=== PATIENT | male | born 1985 | race African-American/Black ===

== ENCOUNTER 2016-10-25 21:54 | Emergency (ER) | payer SELFPAY ==
[~2016-10-25] VITALS: Ht 180.3 cm; Wt 85.0 kg
[2016-10-25 21:56] VITALS: BP 125/75; PULSE 87; RESP 16; TEMP 98.7
[2016-10-25] MEDS ORDERED: PRED-503 PO (22:38)
[2016-10-25] MEDS ORDERED: DICL75TA PO (22:38)
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
== END 2016-10-25 22:54 | disposition home or self-care (01) ==
LOC: NEPB 21:54
DX: M75.51 Bursitis of right shoulder (principal); M79.662 Pain in left lower leg; G89.29 Other chronic pain; F17.200 Nicotine dependence, unspecified, uncomplicated
CPT/HCPCS: 99283

== ENCOUNTER 2017-02-20 07:52 | Emergency (ER) | payer SELFPAY ==
[~2017-02-20] VITALS: Ht 177.8 cm; Wt 80.0 kg
[~2017-02-20 07:52] MED LIST: DICL75TA PO; PRED-503 PO
[2017-02-20 07:53] VITALS: BP 132/84; PULSE 87; RESP 16; TEMP 98.4; O2SAT 99
[2017-02-20 08:08] VITALS: BP 124/76; PULSE 88; RESP 16; TEMP 98.7; O2SAT 98
[2017-02-20 08:13] VITALS: BP 124/76; PULSE 90; RESP 16; O2SAT 97
--- NOTE | 2017-02-20 08:30 | PD ---
HPI . hiccups Chief Complaint: GI Complaint Time Seen by Provider: 08:23 Travel History International Travel<30 days: No Contact w/Intl Traveler<30days: No Traveled to known affect area: No History of Present Illness HPI Patient presents with the chief complaint of hiccups for the past week. The symptoms have come and gone but are getting progressively worse. He has not noted any exacerbating or relieving factor. He has tried some "old wives tales " such as drinking water rapidly while holding his breath with no relief. The patient reports an associated intermittent headache. PFSH Past Medical History Medical History: Denies Significant Hx Diminished Hearing: No Influenza Vaccination: No Past Surgical History Surgical History: No Previous Surgery Social History Alcohol Use: Yes (DAILY) Tobacco Use: Yes (2PPD BLK&MILD'S) Substance Use: No Allergies-Medications (Allergen,Severity, Reaction): Coded Allergies: No Known Allergies (Unverified , 02/20/17) Reported Meds & Prescriptions Reported Meds & Active Scripts Active No Active Prescriptions or Reported Medications Review of Systems Except as stated in HPI: all other systems reviewed are Neg General / Constitutional: No: Fever, Chills HENT: Positive: Headaches Gastrointestinal: Positive: Vomiting (several days ago after drinking alcohol) Physical Exam Narrative GENERAL: Awake and alert and in no acute distress. The patient does have the hiccups. SKIN: Warm and dry. HEAD: Atraumatic. Normocephalic. EYES: Pupils equal and round. Extraocular movements are intact. NECK: Trachea midline. Neck is supple. CARDIOVASCULAR: Regular rate and rhythm. Heart sounds are normal. RESPIRATORY: No accessory muscle use. Lungs are clear. ABDOMEN: Soft and nontender. MUSCULOSKELETAL: No obvious deformities. No edema. NEUROLOGICAL: Awake and alert. No obvious cranial nerve deficits. Motor grossly within normal limits. Normal speech. PSYCHIATRIC: Appropriate mood and affect; insight and judgment normal. Data Data Last Documented VS Vital Signs Date Time Temp Pulse Resp B/P Pulse Ox O2 Delivery O2 Flow Rate FiO2 02/20/17 08:13 90 16 124/76 97 Room Air 02/20/17 08:08 98.7 Orders Chlorpromazine Inj (Thorazine Inj) (02/20/17 08:30) MDM Medical Decision Making Medical Screen Exam Complete: Yes Emergency Medical Condition: Yes Medical Record Reviewed: Yes (the patient's previous visits have been related to pain) Differential Diagnosis Differential diagnosis includes acute alcohol intoxication, idiopathic hiccups, pathological diaphragmatic irritation Narrative Course Patient presents for the treatment of hiccups. I have ordered Thorazine. Diagnosis Primary Impression: Intractable hiccups Patient Instructions: General Instructions, Hiccups (DC) Med/Other Pt SpecificInfo: Prescription(s) given Scripts Chlorpromazine 50 Mg Tab50 Mg PO Q4H PRN (hiccups) #15 TAB Ref 0 Prov:Caro Yates MD 02/20/17 Disposition: 01 DISCHARGE HOME Condition: Stable Caro Yates MD February 20, 2017 08:30
[2017-02-20] MEDS ORDERED: CHLO50TA2 PO (09:47)
== END 2017-02-20 12:23 | disposition home or self-care (01) ==
LOC: NEPC 07:52
DX: R06.6 Hiccough (principal); R51 Headache; F17.200 Nicotine dependence, unspecified, uncomplicated
CPT/HCPCS: 96372; 99283; J3230